=== PATIENT | female | born 1990 | race Caucasian/White ===

== ENCOUNTER 2022-05-06 09:55 | Outpatient (CLI) | payer MEDICAID ==
[~2022-05-06] VITALS: Ht 165.1 cm; Wt 93.6 kg
[2022-05-06] MEDS ORDERED: PRENATAL FORMU1 EAC3 PO (10:12)
[2022-05-06] MEDS ORDERED: IRON TABLETS325 MG PO (10:12)
[2022-05-06 10:15] VITALS: BP 116/68; PULSE 64; TEMP 98.4
--- NOTE | 2022-05-06 10:33 | NUR ---
1015 PATIENT HEREE FOR COMPLAINTS OF FEELING MORE WET OR LEAKING SINCE YESTERDAY. NO CONTRACTIONS NOTED BY PATIENT. EFM ON FHT 120 BABY VERY ACTIVE. SVE AMNIOTRACE NEGATIVE. /HIGH. ENCOURAGE PATIENT TO COUGH NO FLUID NOTED AND NONE ON GLOVE. DR KHAN CALLED AND UPDATED ON ALL ABOVE INFORMATION AND ORDERS TO DISMISS TO HOME AFTER REACTIVE STRIP.
[2022-05-06 10:55] VITALS: BP 108/58; PULSE 103
--- NOTE | 2022-05-06 11:00 | NUR ---
1100 NO CHANGES NOTED AND NO MORE LEAKING AMNIOTRACE NEGATIVE. ALL DISCHARGE INSTRUCTIONS GIVEN TO PATIENT WITH VERBAL UNDERSTANDING NOTED. DENIES NEEDS. FHT 120 GOOD ACCELERATIONS NOTED AND BABY VERY ACTIVE.
== END 2022-05-06 11:02 | disposition home or self-care (01) ==
LOC: LDRO 09:55
DX: Z34.93 Encounter for supervision of normal pregnancy, unspecified, third trimester (principal); Z3A.38 38 weeks gestation of pregnancy

== ENCOUNTER 2022-05-15 21:55 | Outpatient (CLI) | payer MEDICAID ==
[~2022-05-15] VITALS: Ht 165.1 cm; Wt 95.0 kg
[~2022-05-15 21:55] MED LIST: IRON TABLETS325 MG PO; PRENATAL FORMU1 EAC3 PO
[2022-05-15 22:15] VITALS: BP 126/69; PULSE 71; TEMP 98.1
--- NOTE | 2022-05-15 23:50 | NUR ---
PT GIVEN WRITTEN AND VERBAL DISCHARGE INSTRUCTIONS TO REST AND DRINK PLENTY OF WATER. RETURN TO L&D IF SROM, VAG BLEEDING OR REGULAR UC'S. PT VERBALIZED UNDERSTANDING. PT AMB OUT WITH HER BOYFRIEND.
== END 2022-05-15 23:50 | disposition home or self-care (01) ==
LOC: LDRO 21:55 → LDR 22:10 → LDRO 23:50
DX: O62.9 Abnormality of forces of labor, unspecified (principal); Z3A.00 Weeks of gestation of pregnancy not specified
CPT/HCPCS: OP

== ENCOUNTER 2022-05-17 08:16 | Inpatient (IN) | payer MEDICAID ==
[~2022-05-17] VITALS: Ht 167.6 cm; Wt 95.0 kg
[2022-05-23] VITALS (44 sets, daily range): BP systolic 90–127; BP diastolic 49–79; PULSE 52–95; TEMP 97.6–98.3
--- NOTE | 2022-05-23 09:20 | NUR ---
0920 PT AMBULATORY TO UNIT WITH SUPPORT PERSON. PT CHANGED INTO GOWN AND COMFORTABLE IN BED, ORIENTED TO LABOR ROOM, MENU AND EDUCATION FOLDER PROVIDED. PT REPORTS POSITIVE MOVEMENT, IRREGULAR CTX, AND NO LEAKING OF FLUID. UPDATED PT ON PLAN OF CARE, PT AGREEABLE. CONSENT FORMS SIGNED, IV STARTED, LR AND PITOCIN RUNNING PER ORDERS. WILL CONTINUE TO MONITOR.
[2022-05-23 10:35] LABS: BASO % 0.3 % (0.0-2.0); EOS # 0.1 K/mm3 (0.0-0.7); EOS % 0.6 % (0.0-4.0); GRAN # 6.1 K/mm3 (1.4-6.5); GRAN % 76.2 % (42.2-75.2); HEMOGLOBIN 12.4 g/dl (12.5-16.0); LYMPH # 1.3 K/mm3 (1.2-3.4); LYMPH % 16.4 % (20.0-51.0); MEAN CELL VOLUME 88 fl (80.0-100.0); MEAN CORPUSCULAR HEMOGLOBIN 30 pg (27-31); MEAN CORPUSCULAR HGB CONC 34 g/dl (33.0-37.0); MONO # 0.5 K/mm3 (0.1-0.6); MONO % 6.1 % (1.7-9.3); PLATELET COUNT 221 K/mm3 (130-400); RED BLOOD COUNT 4.13 M/mm3 (4.10-5.30); REDCELL DISTRIBUTION WIDTH-CV 14.7 % (11.5-14.5)
[2022-05-23 10:36] LABS: HEMATOCRIT 36.4 % (37.0-47.0)
--- NOTE | 2022-05-23 13:22 | NUR ---
1322 ROLES AT BEDSIDE FOR SVE AND AROM. SVE /-2. AROM COMPLETED AT THIS TIME, CLEAR, LARGE AMOUNT OF FLUID. PT TOLERATED WELL, VS STABLE, EFM TRACING CAT 1.
--- NOTE | 2022-05-23 13:33 | NUR ---
1333 PT SITTING UP ON SIDE OF BED FOR EPIDURAL PLACEMENT, LR BOLUS RUNNING PER PROTOCOL, EFM TRACING CAT 1, VITAL SIGNS STABLE. RICHARD MORRIS AT BEDSIDE. 1339 SINGLE SHOT ADMINISTERED BY RICHARD MORRIS. PT TOLERATED WELL. VS STABLE, EFM TRACING CAT 1. PT RETURNED TO LL POSITION. WILL CONTINUE TO MONITOR.
--- NOTE | 2022-05-23 14:57 | NUR ---
1457 ROLES AT BEDSIDE FOR SVE. PT /-2. WILL CONTINUE WITH PLAN OF CARE.
--- NOTE | 2022-05-23 19:25 | NUR ---
O2 ON VIA MASK AT 10 L.
--- NOTE | 2022-05-23 19:28 | NUR ---
LATE DECELS NOTED. PITOCIN OFF.
--- NOTE | 2022-05-23 19:33 | NUR ---
oxytocin turned off at this time. FHR 135 WITH ACCELS AND VARIBLE,LATE DECELS. MODERATE VARIBLITY. pt complete and having variables, DR KHAN IS ON HER WAY IN.
--- NOTE | 2022-05-23 19:35 | NUR ---
[facility] HERE FOR DELIVERY
--- NOTE | 2022-05-23 19:40 | NUR ---
ROLES IN THE ROOM FOR DELIVERY. PT SETUP IN FOOTREST. PREP DONE BY DR KHAN.
--- NOTE | 2022-05-23 19:50 | NUR ---
VAG DELIVERY FEMALE . NUCHAL CORD X 1. REDUCED. BABY PLACED ON MOMS ABD, DRIED AND STIMULATED BY NURSERY NURSE. CORD WAS CLAMPED THEN CUT BY DAD. BABY PLACED ON MOMS CHEST FOR SKIN TO SKIN.
--- NOTE | 2022-05-23 19:55 | NUR ---
1954 SPONTANEOUS DELIVERY OF PLACENTA. PERINEUM INTACT.
--- NOTE | 2022-05-23 23:15 | NUR ---
PT AMB TO BR TO VOID 500 CC. PERICARE DONEL, PADS, AND PANTIES CHANGED. PT AMB TO WHEELCHAIR AND TRANSFERED TO ROOM 219.
[2022-05-24 00:15] VITALS: BP 112/69; PULSE 79; TEMP 98.2
[2022-05-24 05:00] VITALS: BP 118/6; PULSE 78; TEMP 98.3
[2022-05-24 07:34] VITALS: BP 115/74; PULSE 68; TEMP 98.1
[2022-05-24] MEDS ORDERED: IBU800 M1 PO (08:43)
--- NOTE | 2022-05-24 09:58 | NUR ---
Initial visit; Parents thanked [employer] for offering congratulations and God's blessings for the of their daughter. [employer] thanked family for choosing [facility].
[2022-05-24 11:33] VITALS: BP 111/73; PULSE 68; TEMP 97.8
[2022-05-24 15:49] VITALS: BP 112/71; PULSE 79; TEMP 98.4
[2022-05-24 19:21] VITALS: BP 113/69; PULSE 79; TEMP 98
[2022-05-25 08:30] VITALS: BP 113/73; PULSE 80; TEMP 97.6
--- NOTE | 2022-05-25 09:20 | NUR ---
Discharge instructions and follow up care reviewed with pt and at the bedside. Both verbalized an understanding, agreed with the plan and states no questions or concerns at this time.
== END 2022-05-25 09:30 | disposition home or self-care (01) | DRG 807 ==
LOC: OB 05-23 08:15 → LDR 05-23 09:12 → OB 05-23 09:19 → LDR 05-23 09:19 → OB 05-23 22:42
PROVIDERS: ADMIT Obstetrics & Gynecology
PROC: 10E0XZZ Delivery of Products of Conception, External Approach (ICD-10-PCS; principal; 2022-05-23)
PROC: 3E033VJ Introduction of Other Hormone into Peripheral Vein, Percutaneous Approach (ICD-10-PCS; 2022-05-23)
PROC: 10907ZC Drainage of Amniotic Fluid, Therapeutic from Products of Conception, Via Natural or Artificial Opening (ICD-10-PCS; 2022-05-23)
DX: O48.0 Post-term pregnancy (principal); Z37.0 Single live birth; Z3A.40 40 weeks gestation of pregnancy; O69.81X0 Labor and delivery complicated by cord around neck, without compression, not applicable or unspecified
CPT/HCPCS: J2590; J2795; J7120